=== PATIENT | male | born 2000 | race African-American/Black ===

== ENCOUNTER 2025-01-28 23:01 | Emergency (ER) | payer OTHER ==
[~2025-01-28] VITALS: Ht 167.6 cm; Wt 60.0 kg
[2025-01-28 23:18] VITALS: TEMP 98.7
[2025-01-29] MEDS: KETOROLAC TROMETHAMINE 30 MG/ML VIAL IM ONE (01:03)
[2025-01-29 01:18] VITALS: BP 122/80; PULSE 61; RESP 16; O2SAT 99
[2025-01-29] MEDS: TraMADol HCL 50 MG TABLET PO ONE (01:18)
== END 2025-01-29 01:21 | disposition home or self-care (01) ==
LOC: EMS 23:01
DX: M76.61 Achilles tendinitis, right leg (principal)
CPT/HCPCS: 99283; 73610; 96372; J1885

== ENCOUNTER 2025-07-08 21:52 | Emergency (ER) | payer OTHER ==
[~2025-07-08] VITALS: Ht 180.3 cm; Wt 66.4 kg
[2025-07-08 22:41] VITALS: TEMP 98.4
[2025-07-09] VITALS: BP 127/63; PULSE 69; RESP 16; O2SAT 99
[2025-07-09] MEDS ORDERED: TOBR5DRO44 OD (00:15)
== END 2025-07-09 00:35 | disposition home or self-care (01) ==
LOC: EMS 21:52
DX: H10.89 Other conjunctivitis (principal)
CPT/HCPCS: 99283; Z7502